=== PATIENT | female | born 1980 | race Caucasian/White ===

== ENCOUNTER 2025-01-31 18:14 | Emergency (ER) | payer BC, SELFPAY ==
--- OUTSIDE RECORDS SUMMARY | 2024-01-11 08:34 | XMS_ITS ---
Author Organization [facility] [employer] Address [address] [address] [place] [address] Care Team Providers Care Door Closer Name Role Phone Allison Laird Primary Care Provider [phone] MEDICATIONS Medication SIG (Take, Route, Frequency, Duration) Notes Start Date End Date Status Losartan Potassium 50 MG 1 tablet Orally Once a day for 90 days 01/11/2024 Active Encounters Encounter Location Date Provider Diagnosis [facility] [employer] [address] [facility] [place] [address] 01/11/2024 Allison Laird Benign essential hypertension I10 ASSESSMENTS Encounter Date Diagnosis Assessment Notes Treatment Notes Treatment Clinical Notes Section Notes 01/11/2024 Benign essential hypertension (ICD-10 - I10) PLAN OF TREATMENT Medication Medication Name Sig Start Date Stop Date Notes Losartan Potassium 50 MG 1 tablet Orally Once a day for 90 days 01/11/2024 Next Appt Details Provider Name:Allison rodriguez, 05/31/2025 03:00:00 PM, [address],[facility] [address], [place], [address], Progress Notes * JOHNATHAN AngiemorenitaDOB:1980 (43 yo F)Acc No.[id number]:01/11/2024 Patient: Jacqui MANN :1980 Age:43 Y Sex:Female Address:[address] , [address], [place], [address] * Refills Refill Losartan Potassium Tablet, 50 MG, Orally, 90 Tablet, 1 tablet, Once a day, 90 days, Refills=1 * true * Date:
--- OUTSIDE RECORDS SUMMARY | 2024-01-12 05:15 | XMS_ITS ---
Author Organization [facility] [place] Address [address] [place] [address] Care Team Providers Care Ropewalk Rope Maker Name Role Phone Eitan DANIELS, [facility] Primary Care Provider Unavail able Lola Rea Unavailable [phone] REASON FOR VISIT JR 6mo FBSE Encounters Encounter Location Date Provider Diagnosis [facility] [address] [place] [address] 01/12/2024 Lola Rea Other rosacea L71.8 ; Other seborrheic keratosis L82.1 ; Other melanin hyperpigmentation L81.4 ; Melanocytic nevi of trunk D22.5 and Neoplasm of uncertain behavior of skin D48.5 Assessments Encounter Date Diagnosis (ICD Code) Assessment Notes Treatment Notes Treatment Clinical Notes Section Notes 01/12/2024 Other rosacea (ICD-1 0 - L71.8) 01/12/2024 Other seborrheic keratosis (ICD-10 - L82.1) 01/12/2024 Other melanin hyperpigmentation (ICD-10 - L81.4) 01/12/2024 Melanocytic nevi of trunk (ICD-10 - D22.5) 01/12/2024 Neoplasm of uncertai n behavior of skin (ICD-10 - D48.5) Plan Of Treatment No Information Progress Notes * Jacqiu MANNDOB:1980 (44 yo F)Acc No.[id number]:01/12/2024 UNLOCKED PROGRESS NOTE Established Patient: Jacqui OLGUIN Provider: Rachna Rea NP :1980 A ge:43 Y S ex:Female Date:01/12/2024 Address:[facility] [address] [facility] Pcp:Allison Laird MD Check In:08:48 AM ESTCheck O ut:09:22 AM EST Subjective: * Chief Complaints: * 1 . JR 6mo FBSE. * Medical History: Objective: * Vitals: Assessment: * Assessment: 1. O ther rosacea - L71.8 2 . O ther seborrheic keratosis - L82.1 ? 3 . O ther melanin hyperpigmentation - L81.4 4 . M elanocytic nevi of trunk - D22.5 5 . N eoplasm of uncertain behavior of skin - D48.5 ? Plan: * Treatment: * Procedure Codes: 1 1102 TANGENTIAL BIOPSY OF SKIN * * Electronic signature of Lola Rea DNP, ZIPPER IRONER.ELECTRICAL MAINTENANCE [id number] on 01/31/2025 at 06:25 PM EDT Sign off status: Pending Visit Status: Abby GOEL (Check Out) * Provider: Rachna Rea NP Date: 0 01/12/2024 Generated for Elle donaldson/Hector/Debbieitting on: 01/31/2025 06:25 PM EDT
--- OUTSIDE RECORDS SUMMARY | 2024-03-22 04:30 | XMS_ITS ---
Author Organization [facility] in [place] Address [address] [place] [address] Care Team Providers Care Shingle Grader Name Role Phone Eitan DANIELS, Allison Primary Care Provider Unavail Lola Smith Unavailable [phone] REASON FOR VISIT bm 2mo rosacea Encounters Encounter Location Date Provider Diagnosis [facility] [address] [place] [address] 03/22/2024 Lola Rea Plan Of Treatment No Information Progress Notes * Jacqui MANNDOB:1980 (44 yo F)Acc No.[id number]:03/22/2024 UNLOCKED PROGRESS NOTE Established Patient: Jacqui OLGUIN Provider: Rachna Rea NP :1980 A ge:44 Y S ex:Female Date:03/22/2024 Address:[facility] [place] [address] [facility] Pcp:Allison Laird MD Subjective: * Chief Complaints: * 1 . Bm 2mo rosacea. * Medical History: Objective: * Vitals: Assessment: Plan: * Treatment: * * Electronic signature of Lola Rea DNP, COOK NIGHT.VENDING ENTERPRISES SUPERVISOR.[email or web address] on 01/31/2025 at 06:24 PM EDT Sign off status: Pending Visit Status: N /S (No-Show) * Provider: Rachna Rea NP Date: 0 03/22/2024 Generated for Elle donaldson/Hector/eTransmitting on: 01/31/2025 06:24 PM EDT
--- OUTSIDE RECORDS SUMMARY | 2024-07-13 07:30 | XMS_ITS ---
Author Organization [facility] [employer] Address [address] [facility] [address] [place] [address] Care Team Providers Care Undercollar Baster Name Role Phone Allison Laird Primary Care Provider REASON FOR VISIT 6 month f/u MEDICATIONS Medication SIG (Take, Route, Frequency, Duration) Notes Start Date End Date Status Multivitamin Adults 1 1 tablet Orally On ce a day Active Zinc 50 MG 1 tablet Orally Once a day Active Losartan Potassium 50 MG 1 tablet Orally Once a day for 90 days 01/11/2024 Active Loratadine 10 MG 1 tablet as needed. Orally Once a day for 30 day(s) 04/04/2020 Active Propranolol HCl ER 60 MG 1 capsule Orall y Once a day for 90 days Active Rizatriptan Benzoate 10 MG 1 tablet as n eeded Orally Once a day 10/13/2022 Active Levothyroxine Sodium 175 MCG 1 tablet in the morning on an empty stomach Orally Once a day Active Vitamin A 79477 UNIT 1 capsule with food or milk Orally Once a day Active Thiamine HCl 100 mg 1 tablet Orally Once a day Active SOCIAL HISTORY Tobacco Use: Social History Observation Description Date Details (start date - stop date) Never Smoker NA - NA Sex Assigned At : Social History Observation Description Sex Assigned At Unknown Tobacco Use/Smoking Question Answer Notes Are you a nonsmoker Additional Findings: Tobacco Non-User Non-smoker for personal reasons Tobacco use other than smoking: Question Answer Notes Are you an other tobacco user? No Encounters Encounter Location Date Provider Diagnosis [facility] [employer] [address] [facility] [address] [place] [address] 07/13/2024 Allison Laird ASSESSMENTS Encounter Date Diagnosis Assessment Notes Treatment Notes Treatment Clinical Notes Section Notes 07/13/2024 Other PLAN OF TREATMENT Next Appt Details Provider Name:Geraldinedarryn Simon jennifer, 05/31/2025 03:00:00 PM, [address] [facility] [address], [place], [address], Progress Notes * Jacqui MANNDOB:1980 (44 yo F)Acc No.[id number]:07/13/2024 Progress Notes Patient: Jacqui MANN Provider: Allison Laird MD :1980 Age:44 Y Sex:Female Date:07/13/2024 Address:[address] [place] [address] [address], [facility] Subjective: * Chief Complaints: * 1. 6 month f/u. * Medical History: AAFP Risk Level 3, Hypothyroidism, Obstructive Sleep Apnea, Reflux Esophagitis, Morbid Obesity, Hypertension, Refused Flu vaccine . * Surgical History: cholecystectomy , hysterectomy , fractured collar bone , EGD 04/2015, Colonoscopy 06/2015, Laproscopic Bariatric Surgery 10/07/2015, oral surgery all teeth tooken out 01/05/17. * Hospitalization/Major Diagno stic Procedure: Laproscopic Bariatric Surgery 09/2015. * Family History: Father: hypertension, diagnosed with Hypertension. Mother: stroke, hypertension, migraine, obesity, thyroid disease, depression, hypercholesterolemia, DVT., diagnosed with Hypertension, Unspecified cerebral artery occlusion with cerebral infarction. * Social History: Tobacco Use: Tobacco Use/Smoking Are you a nonsmoker Additional Findings: Tobacco Non-User Non-smoker for personal reasons Tobacco use other than smoking Are you an other tobacco user? No Drugs/Alcohol: Drugs Have you used drugs other than those for medical reasons in the past 12 months? No. Alcohol Screen Did you have a drink containing alcohol in the past year?: No, Points: 0, Interpretation: Negative. * Medications: Taking Levothyroxine Sodium 175 MCG Tablet 1 tablet in the morning on an empty stomach Orally Once a day , Taking Rizatriptan Benzoate 10 MG Tablet Disintegrating 1 tablet as needed Orally Once a day , Taking Thiamine HCl 100 mg Tablet 1 tablet Orally Once a day , Taking Vitamin A 73790 UNIT Capsule 1 capsule with food or milk Orally Once a day , Taking Zinc 50 MG Tablet 1 tablet Orally Once a day , Taking Multivitamin Adults 1 Tablet 1 tablet Orally Once a day , Taking Loratadine 10 MG Tablet 1 tablet as needed. Orally Once a day , Taking Losartan Potassium 50 MG Tablet 1 tablet Orally Once a day , Taking Propranolol HCl ER 60 MG Capsule Extended Release 24 Hour 1 capsule Orally Once a day Objective: Assessment: Plan: * Treatment: * Images: Care Plan Details* * Sign off status: Pending * Provider: Allison Laird MD Date: 07/13/2024
--- OUTSIDE RECORDS SUMMARY | 2024-07-26 05:15 | XMS_ITS ---
Author Organization [facility] in [place] Address [address] [place] [address] Care Team Providers Care Laceworker Name Role Phone Eitan DNAIELS, Allison Primary Care Provider Unavail Lola Smith Unavailable [phone] REASON FOR VISIT bm 6mo fbse hx of DN Encounters Encounter Location Date Provider Diagnosis [facility] [address] [place] [address] 07/26/2024 Lola Rea Plan Of Treatment No Information Progress Notes * Jacqui MANNDOB:1980 (44 yo F)Acc No.[id number]:07/26/2024 UNLOCKED PROGRESS NOTE Established Patient: Jacqui OLGUIN Provider: Rachna Rea NP :1980 A ge:44 Y S ex:Female Date:07/26/2024 Address:[facility] [address] [facility] Pcp:Allison Laird MD Subjective: * Chief Complaints: * 1 . bm 6mo fbse hx of DN. * Medical History: Objective: * Vitals: Assessment: Plan: * Treatment: * * Electronic signature of Lola Rea DNP, MATHEMATICS TEACHER.MATH AND PHYSICS INSTRUCTOR.[email or web address] on 01/31/2025 at 06:24 PM EDT Sign off status: Pending Visit Status: N /S (No-Show) * Provider: Rachna Rea NP Date: 1 09/25/2023 Generated for Elle donaldson/Hector/eTransmitting on: 0 01/31/2025 06:24 PM EDT
--- OUTSIDE RECORDS SUMMARY | 2024-11-21 09:30 | XMS_ITS ---
Author Organization [facility] [employer] Address [address] [facility] [place] [address] Care Team Providers Care Batteryman Name Role Phone Allison Laird Primary Care Provider [phone] ALLERGIES No Known Allergies RESULTS Component Value Reference Range Notes Ferritin Reviewed date:11/21/2024 04:34:37 PM Interpretation:Normal Performing Lab: Notes/Report: Ferritin Lvl 12.3 5.0-148.0 ng/mL TSH Reviewed date:11/22/2024 10:19:16 AM Interpretation:Abnormal Performing Lab: Notes/Report: TSH 3.92 0.36-3.74 mIU/mL REASON FOR VISIT foll up MEDICATIONS Medication SIG (Take, Route, Frequency, Duration) Notes Start Date End Date Status Vitamin A 06814 UNIT 1 capsule with food or milk Orally Once a day Active Ferrous Sulfate 325 (65 Fe) MG 1 tablet Orally Twice a day for 90 days 11/21/2024 Active Zinc 50 MG 1 tablet Orally Once a day Active Multivitamin Adults 1 1 tablet Orally On ce a day Active Thiamine HCl 100 mg 1 tablet Orally Once a day for 90 days Active Levothyroxine Sodium 200 MCG 1 tablet in the morning on an empty stomach Orally Once a day for 90 days Active Rizatriptan Benzoate 10 MG 1 tablet as n eeded Orally Once a day for 90 days 10/13/2022 Active Loratadine 10 MG 1 tablet as needed. Orally Once a day for 30 day(s) 04/04/2020 Not-Taking Losartan Potassium 50 MG 1 tablet Orally Once a day 01/11/2024 Active Propranolol HCl ER 60 MG 1 capsule Orall y Once a day Active SOCIAL HISTORY Tobacco [...] Are you an other tobacco user? No VITAL SIGNS Blood pressure systolic 130 mm Hg 11/22/19 25 Blood pressure diastolic 89 mm Hg 025 Heart Rate 61 /min 11/21/2024 Height 5ft4in in 11/21/2024 Weight 285 lbs 11/21/2024 BMI 48.91 kg/m2 11/21/2024 Encounters Encounter Location Date Provider Diagnosis [facility] [address] [address] 11/21/2024 Allison Laird Benign essential hypertension I10 ; Hypothyroidism E03.9 ; Chronic migraine G43.709 ; Microcytosis R71.8 ; Morbid obesity E66.01 and Bariatric surgery status Z98.84 ASSESSMENTS Encounter Date Diagnosis Assessment Notes Treatment Notes Treatment Clinical Notes Section Notes 11/21/2024 Benign essential hypertension (ICD-10 - I10) Well controlled on current therapy, continue present regimen. 11/21/2024 Hypothyroidism (ICD-10 - E03.9) Increase dose for better control. 11/21/2024 Chronic migraine (ICD-10 - G43.709) No more episode. 11/21/2024 Microcytosis (ICD-10 - R71.8) Await labs to ruleout iron deficiency. 11/21/2024 Morbid obesity (ICD-10 - E66.01) weight loss encouraged. 11/21/2024 Bariatric surgery status (ICD-10 - Z98.84) Weight remains stable. PLAN OF TREATMENT Medication Medication Name Sig Start Date Stop Date Notes Vitamin A 05579 UNIT 1 capsule with food or milk Orally Once a day Ferrous Sulfate 325 (65 Fe) MG 1 tablet Orally Twice a day for 90 days 11/21/2024 Zinc 50 MG 1 tablet Orally Once a day Multivitamin Adults 1 1 tablet Orally Once a day Thiamine HCl 100 mg 1 tablet Orally Once a day for 90 days Levothyroxine Sodium 200 MCG 1 tablet in the morning on an empty stomach Orally Once a day for 90 days Rizatriptan Benzoate 10 MG 1 tablet as n eeded Orally Once a day for 90 days 10/13/2022 Losartan Potassium 50 MG 1 tablet Orally Once a day 2023 Propranolol HCl ER 60 MG 1 capsule Orally Once a day Treatment Notes Assessment Notes Benign essential hypertension Well contr olled on current therapy, continue present regimen. Hypothyroidism Increase dose for be tter control. Chronic migraine No more episode. Microcytosis Await labs to ruleou t iron deficiency. Morbid obesity weight loss encour ed. Bariatric surgery status Weight remains stable. Pending Test Test Name Order Date Reticulocyte Count 11/21/2024 Iron & TIBC 11/21/2024 Next Appt Details Follow Up: 6 Months, Reason: Provider Name:Allison rodriguez, 05/31/2025 03:00:00 PM, [address] [facility] [address], [place], [address], Progress Notes * Jacqui MANNDOB:1980 (44 yo F)Acc No.[id number]:11/21/2024 Progress Notes Patient: Jacqui MANN Provider: Allison Laird MD :1980 Age:44 Y Sex:Female Date:11/21/2024 Address:[address] [place] [address] [address] [facility] , [address], [place] [id number] Subjective: * Chief Complaints: * 1. Foll up. * HPI: Hypertension: Patient presents for follow-up of hypertension which is long-standing, which was diagnosed years ago, considered benign. Medication(s) for hypertension include n ot taking lisinopril after bariatric surgery and weight loss., Propranolol. Response to medication(s) has been good, has been variable, mostly at goal. Hypothyroidism: The patient presents for follow-up of hypothyroidism which was diagnosed years ago, considered moderate at diagnosis, considered secondary to autoimmune thyroiditis . Laboratory testing has included TSH, 0-2.0 mcg/dL. Medication(s) include Levothyroxine, at moderate dose. Response to medication has been good. Depression Screening: PHQ-2 In last 2 weeks have you been bothered by Little interest or pleasure in doing things No Feeling down, depressed, or hopeless No * ROS: Constitutional: Change in appetite denies. Sleep disturbance denies. Weight Change denies. Allergy/Immunology: Watery eyes denies. Eyes: Jaundice denies. Vision Change denies. Diminished visual acuity denies. Discharge denies. Dry eye denies. Itching and redness denies. New Pain denies. Red eye denies. ENT/Mouth: Blocked ear denies. Decreased hearing denies. Ear pain denies. Ringing in the ears denies. Sore throat denies. Respiratory: Breathing pattern denies. Cough denies. Hemoptysis denies. Pain with inspiration denies. Shortness of breath denies. Sputum production denies. Wheezing denies. Cardiovascular: Chest pain denies. Claudication denies. Difficulty laying flat denies. Dizziness denies. Dyspnea on exertion denies. Irregular heartbeat denies. Palpitations denies. Weakness denies. Gastrointestinal: Abdominal pain denies. Blood in stool denies. Change in bowel habits denies. Constipation denies. Diarrhea denies. Heartburn denies. Nausea denies. Rectal bleeding denies. Vomiting denies. Weight loss denies. Genitourinary: Blood in urine denies. Difficulty urinating denies. Frequent urination denies. Painful urination denies. Musculoskeletal: Joint stiffness denies. Leg cramps denies. Muscle aches denies. Painful joints denies. Sciatica denies. Peripheral Vascular: Blanching of skin denies. Cold extremities denies. Pain/cramping in legs after exertion denies. Ulceration of feet denies. Neurological: Memory loss denies. Tremor denies. Psychiatric: Anxiety denies. Mood changes denies. Difficulty sleeping denies. * Medical History: AAFP Risk Level 3, [...] No, Points: 0, Interpretation: Negative. * Medications: Not-Taking Levothyroxine Sodium 175 MCG Tablet 1 tablet in the morning on an empty stomach Orally Once a day , Not-Taking Rizatriptan Benzoate 10 MG Tablet Disintegrating 1 tablet as needed Orally Once a day , Not-Taking Thiamine HCl 100 mg Tablet 1 tablet Orally Once a day , Not-Taking Vitamin A 50902 UNIT Capsule 1 capsule with food or milk Orally Once a day , Not-Taking Zinc 50 MG Tablet 1 tablet Orally Once a day , Not-Taking Multivitamin Adults 1 Tablet 1 tablet Orally Once a day , Not-Taking Loratadine 10 MG Tablet 1 tablet as needed. Orally Once a day , Not- Taking Losartan Potassium 50 MG Tablet 1 tablet Orally Once a day , Not-Taking Propranolol HCl ER 60 MG Capsule Extended Release 24 Hour 1 capsule Orally Once a day , Medication List reviewed and reconciled with the patient * Allergies: N.K.D.A. Objective: * Vitals: BP:130/89mm Hg, HR:61/min, Ht: 5ft4in, Wt:285lbs, BMI:48.91Index, Ht-cm: 162.56 cm, Wt-k.27 kg. * Examination: General Examination: GENERAL APPEARANCE: in no acute distress, , obese. HEAD: atraumatic. EYES: pupils equal, round, reactive to light . EARS: external canal is normal, tympanic membrane intact . NOSE: no lesions, septum intact. ORAL CAVITY: mucosa moist. THROAT: clear. NECK/THYROID: neck supple , no carotid bruit, no cervical lymphadenopathy, no jugular venous distention, no thyromegaly. SKIN: warm and dry.She has a pigmented skin leision on her mid back.. HEART: regular rate and rhythm, S1, S2 normal, no murmurs, no rubs. LUNGS: good air entry, no wheezes, rales, rhonchi, clear to auscultation bilaterally, normal to palpation no fremitus. CHEST: symetrical. ABDOMEN: soft, nontender, nondistended, normal, bowel sounds present, no hepatosplenomegaly, no hernias present, no masses palpable, no rebound tenderness, no bruits. EXTREMITIES: no deformity, warm to touch, no clubbing, cyanosis, or edema. Assessment: * Assessment: 1. Benign essential hypertension - I10 2. Hypothyroidism - E03.9 3. Chronic migraine - G43.709 4. Microcytosis - R71.8 5. Morbid obesity - E66.01 6. Bariatric surgery status - Z98.84 Plan: * Treatment: 2. Hypothyroidism Increase Levothyroxine Sodium Tablet, 200 MCG, 1 tablet in the morning on an empty stomach, Orally, Once a day, 90 days, 90 Tablet, Refills 1. LAB: TSH (Collection Date & Time - 11/21/2024 02:16 PM) Abnormal Value Reference Range TSH 3.92 H 0.36-3.74 - mIU/mL * Thyroid is under corrected.N eed to increase dose to 200 mmcg daily,Rx sent.Allison Laird 11/21/2024 04:34:01 PM >informed the Anyi Leon 11/22/2024 10:19:13 AM > Notes: Increase dose for better control.?3.??Chronic migraine?? Continue Rizatriptan Benzoate Tablet Disintegrating, 10 MG, 1 tablet as needed, Orally, Once a day,90 days, 45 Tablet, Refills 1;??Continue Propranolol HCl ER Capsule Extended Release 24 Hour, 60 MG, 1 capsule, Orally, Once a day.? Notes: No more episode.?4.??Microcytosis?? Start Ferrous Sulfate Tablet, 325 (65 Fe) MG, 1 tablet, Orally, Twice a day, 90 days, 180, Refills 1.?LAB: Reticulocyte Count ?LAB: Iron & TIBC ?LAB: Ferritin (Collection Date & Time - 11/21/2024 02:16 PM)??Normal* Value Reference Range Ferritin Lvl 12.3 5.0-148.0 - ng/mL * Allison Laird 11/21/2024 04:33:56 PM > Notes: Await labs to ruleout iron deficiency.?5.??Morbid obesity?? Notes: weight loss encouraged.?6.??Bariatric surgery status?? Continue Thiamine HCl Tablet, 100 mg, 1 tablet, Orally, Once a day, 90 days, 90 Tablet, Refills 1;??Continue Vitamin A Capsule, 04908 UNIT, 1 capsule with food or milk, Orally, Once a day;??Continue Zinc Tablet, 50 MG, 1 tablet, Orally, Once a day;??Continue Multivitamin Adults Tablet, 1, 1 tablet,Orally, Once a day.? Notes: Weight remains stable.? * Follow Up: 6 Months * Images: Care Plan Details* * Sign off status: Pending * Provider: Allison Laird MD Date: 11/21/2024 History and Physical Notes * HPI (History of Present Illness) Category Sub-Category Detail Notes Category Not es Hypertension Patient presents for follow-up of hypertension which is long-standing, which was diagnosed years ago, considered benign Medication(s) for hypertension include n ot taking lisinopril after bariatric surgery and weight loss., Propranolol Response to medication(s) has been good, has been variable, mostly at goal Hypothyroidism The patient presents for follow-up of hypothyroidism which was diagnosed years ago, considered moderate at diagnosis, considered secondary to autoimmune thyroiditis Laboratory testing has included TSH, 0-2 .0 mcg/dL Medication(s) include Levothyroxine, at moderate dose Response to medication has been good Depression Screening PHQ-2 In last 2 wee ks have you been bothered by Little interest or pleasure in doing things: No Feeling down, depressed, or hopeless: No Examination Category Sub-Category Detail Notes Category Not es General Examination GENERAL APPEARANCE: in no acute di stress, , obese HEAD: atraumatic EYES: pupils equal, round, reactive to light EARS: external canal is no rmal, tympanic membrane intact NOSE: no lesions, septum i ntact THROAT: clear NECK/THYROID: neck supple , no car otid bruit, no cervical lymphadenopathy, no jugular venous distention, no thyromegaly HEART: regular rate and rhy thm, S1, S2 normal, no murmurs, no rubs CHEST: symetrical LUNGS: good air entry, no w heezes, rales, rhonchi, clear to auscultation bilaterally, normal to palpation no fremitus ABDOMEN: soft, nontender, non distended, normal, bowel sounds present, no hepatosplenomegaly, no hernias present, no masses palpable, no rebound tenderness, no bruits SKIN: warm and dry.She has a pigmented skin leision on her mid back. EXTREMITIES: no deformity, warm t o touch, no clubbing, cyanosis, or edema ORAL CAVITY: mucosa moist
[2025-01-31] VITALS (22 sets, daily range): BP systolic 131–168; BP diastolic 69–82; PULSE 62–83; TEMP 36.7; O2SAT 96–100; BMI 47.2
--- OUTSIDE RECORDS SUMMARY | 2025-01-31 18:24 | XMS_ITS | Patient Health Record ---
Demographics Address [address] [place] [address] Preferred Language en Marital Status unmarried Quaker Affiliation Unknown Race White Ethnic Group Not or Lati no Author Organization [facility] in [place] Address [address] [place] [address] Care Team Providers Care Drapery And Upholstery Estimator Name Role Phone Eitan DANIELS, [facility] Primary Care Provider Unavail able Lola Rea Unavailable [phone] Reason For Referral No Information Encounters Encounter Location Date Provider Diagnosis [facility] [address] [place] [address] 03/22/2024 Lola Rea [facility] [address] [place] [address] 07/26/2024 Lola Rea Plan Of Treatment No Information
--- NOTE | 2025-01-31 18:46 | ECG_ITS ---
[facility] Test Date: 2025-01-31 Pat Name: CIARRA HODGE Department: Room: - Gender: Female Exhibition Designer: : 1980 Requested By: [id number] Order Number: [id number] Reading MD: MICHELLE AVILA M.D. Measurements Intervals [place] Rate: 69 P: 32 MI: 160 QRS: 45 QRSD: 76 T: 47 QT: 368 QTc: 387 Interpretive Statements 1100 Sinus rhythm 8102 Low QRS voltage in chest leads Abnormal ECG No previous ECG available for comparison Electronically Signed On 02-02-2025 8:49:37 EDT by MICHELLE AVILA M.D.
--- NOTE | 2025-01-31 18:46 | XR_ITS ---
The [address] [address] Patient Name: CIARRA HODGE MRN: [id number] date: 1980 Sex: F Assigned Patient Location: ER Current Patient Location: ED.MAIN Accession/Order Number: [id number] Exam Date: 01/31/2025 19:20 Report Date: 01/31/2025 19:22 At the request of: NANETTE ANGELA Procedure: XR ribs RT min 3V w CXR1V Right Rib series with Single View Chest HISTORY: Right rib pain. COMPARISON: None MEDIASTINUM: Cardiac, mediastinal hilar silhouettes are within normal limits. LUNGS AND PLEURA: No acute lung process, pleural effusion or pneumothorax identified. ACUTE FINDINGS: No displaced rib fracture identified. DEGENERATIVE CHANGE: Unremarkable SOFT TISSUE: Unremarkable POSTOP CHANGES: None XR/XR ribs RT min 3V w CXR1V IMPRESSION: No displaced rib fracture. No acute chest findings. Impression dictated by: Deven Morris M.D. 01/31/2025 7:22 PM Dictation Location: [employer] Electronically authenticated by: [id number] Y Date: 01/31/2025 19:22
--- NOTE | 2025-01-31 18:46 | ED.GENADUL1 ---
HPI HPI - General Adult General Chief complaint: Chest Pain Stated complaint: ABDOMINAL PAIN Time Seen by Provider: 01/31/25 18:42 Source: patient Limitations: no limitations History of Present Illness HPI narrative: 44 year old female presents to the ED for chest discomfort. States it starts in the mid chest and goes down to under her right breast. It wraps around to her back. Onset was this morning. It is worse with movement, inspiration, and palpation. States last week someone gave her a tight hug and she felt something move within her right chest. The pain then only lasted a few minutes. Denies fever, chills, dizziness, SOB. Denies abd pain, N/V/D, urinary symptoms. Related Data Home Medications ?Medication ?Instructions ?Recorded ?Confirmed calcium 600 mg (as 1 tab PO DAILY 01/31/25 01/31/25 carbonate)-vitamin D3 5 mcg (200 unit) tablet (Calcium 600 + D(3)) ferrous sulfate 325 mg (65 mg 325 mg PO .q12 01/31/25 01/31/25 iron) tablet (FeroSul) levothyroxine 175 mcg tablet 200 mcg PO QDAY 01/31/25 01/31/25 losartan 50 mg tablet 50 mg PO QDAY 01/31/25 01/31/25 propranolol 60 mg capsule,24 60 mg PO Q24H 01/31/25 01/31/25 hr,extended release rizatriptan 10 mg disintegrating 10 mg PO Q2H PRN migraine headache 01/31/25 01/31/25 tablet thiamine HCl (vitamin B1) 100 mg 100 mg PO QDAY 01/31/25 01/31/25 tablet Previous Rx's ?Medication ?Instructions ?Recorded hydrocodone 5 mg-acetaminophen 325 1 tab PO Q8H PRN pain 4 days #12 01/31/25 mg tablet tabs methocarbamol 500 mg tablet 500 mg PO Q8H PRN pain, muscle 01/31/25 spasms #15 tabs Allergies Allergy/AdvReac Type Severity Reaction Status Date / Time latex Allergy Rash Verified 01/31/25 18:24 Opioid HPI Opioid Management Most Recent Opioid Data: Last Pain Scale 4 Today, 21:16 Last NOV Pain Assessment Today, 21:16 Review of Systems ROS Constitutional Denies: fever or chills Ears, nose, mouth, and throat Denies: throat pain or neck pain Cardiovascular Reports: chest pain Respiratory Denies: shortness of breath or cough Gastrointestinal Denies: abdominal pain, nausea, vomiting or diarrhea Musculoskeletal Reports: back pain; Denies: neck pain Integumentary/Breast Denies: rash or itching [facility] Medical History (Updated 01/31/25 @ 21:10 by Meri Bagley) Hypothyroid ?E03.9 - Hypothyroidism, unspecified (ICD-10) HTN (hypertension) ?I10 - Essential (primary) hypertension (ICD-10) Migraine ?G43.909 - Migraine, unspecified, not intractable, without status migrainosus (ICD-10) Surgical History (Updated 01/31/25 @ 18:32 by Liliana Nickerson) Gastric bypass status for obesity ?Z98.84 - Bariatric surgery status (ICD-10) Social History Little interest or pleasure in doing things: not at all Feeling down, depressed, or hopeless: not at all Exam Constitutional Vital Signs, click to edit/add: Last Vital Signs Temp 98.1 F 01/31/25 18:24 Pulse 66 01/31/25 21:10 Resp 14 01/31/25 21:10 BP 131/77 01/31/25 20:31 Pulse Ox 100 01/31/25 21:10 O2 Del Method Room Air 01/31/25 18:24 Common normals: no apparent distress General appearance: cooperative HENMT Common normals: moist oral mucous membranes Eye Common normals: conjunctivae normal and no scleral icterus Neck & C-Spine Common normals: supple Chest Chest: symmetrical chest wall rise Other: Tenderness to right lower rib area and right upper mid chest with palpation. No rash. Respiratory Common normals: normal respiratory effort, no retractions, no use of accessory muscles, clear to auscultation bilaterally and percussion normal Effort & inspection: able to speak in complete sentences and symmetric chest movement Cardio Common normals: regular rate and regular rhythm GI Common normals: soft to palpation and non-tender Neuro Common normals: oriented x3 and moves all extremities Sensorium/orientation: awake and alert Speech: speech normal Course Vital Signs Vital signs: Vital Signs Temperature 98.1 F 01/31/25 18:24 Pulse Rate 69 01/31/25 18:24 Respiratory Rate 16 01/31/25 18:24 Blood Pressure 168/81 H 01/31/25 18:24 Pulse Oximetry 99 05/22/25 18:24 Oxygen Delivery Method Room Air 01/31/25 18:24 Temperature 98.1 F 01/31/25 18:24 Pulse Rate 66 01/31/25 21:10 Respiratory Rate 14 01/31/25 21:10 Blood Pressure 131/77 01/31/25 20:31 Pulse Oximetry 100 01/31/25 21:10 Oxygen Delivery Method Room Air 01/31/25 18:24 Medical Decision Making MDM Narrative Medical decision making narrative: Laboratory studies were unremarkable, including troponin. Chest/rib x-rays were negative for acute findings. Abdomen was soft and nontender. The patient's pain was reproducible. Findings were discussed. She was medicated with Toradol and Decadron here. The patient was driving home which limited her pain treatment options here. Return precautions were discussed. Follow up with pcp for a recheck, further evaluation and treatment. OARRS was reviewed. Prescriptions were provided for Robaxin and [place]. HEART Score for Major Cardiac Events from [email or web address] on 01/31/2025 All calculations should be rechecked by clinician prior to use RESULT SUMMARY: 1 points Low Score (0-3 points) Risk of MACE of 0.9-1.7%. INPUTS: History ?> 0 = Slightly suspicious EKG ?> 0 = Normal Age ?> 0 = <45 Risk factors ?> 1 = 1-2 risk factors Initial troponin ?> 0 = <=normal limit Medical Records Medical records reviewed: Yes I reviewed the patient's medical records Lab Data Lab results reviewed: Yes I reviewed the patient's lab results Labs: Lab Results 01/31/25 Range/Units 19:00 WBC 10.5 (4.0-11.0) 10^3/uL RBC 5.01 (4.20-5.40) 10^6/uL Hgb 13.1 (12.0-16.0) g/dL Hct 40.1 (36.0-48.0) % MCV 80.0 L (81.0-99.0) fL MCH 26.1 L (26.7-34.0) pg MCHC 32.7 (29.9-35.2) g/dL RDW 14.1 (11.0-15.0) % Plt Count 242 (150-450) 10^3/uL MPV 10.3 (9.5-13.5) fL Neut % (Auto) 64.1 (43.0-75.0) % Lymph % (Auto) 26.4 (20.5-60.0) % [place] % (Auto) 7.7 (1.7-12.0) % Eos % (Auto) 1.1 (0.9-7.0) % Baso % (Auto) 0.5 (0.2-2.0) % Neut # (Auto) 6.7 H (1.4-6.5) 10^3/uL Lymph # (Auto) 2.8 (1.2-3.8) 10^3/uL [place] # (Auto) 0.8 (0.3-0.8) 10^3/uL Eos # (Auto) 0.1 (0.0-0.7) 10^3/uL Baso # (Auto) 0.1 (0.0-0.1) 10^3/uL Abs Immat Gran (auto) 0.02 (0.00-0.03) 10^3/uL Imm/Tot Granulo (auto) 0.2 (0.0-0.5) % Sodium 142 (136-145) mmol/L Potassium 3.9 (3.5-5.1) mmol/L Chloride 106 (98-107) mmol/L Carbon Dioxide 28.6 (21.0-32.0) mmol/L Anion Gap 11.3 BUN 12.0 (7.0-18.0) mg/dL Creatinine 0.80 (0.55-1.02) mg/dL Est GFR ( Amer) >60 (>=60 mL/min/1.73m^2) Est GFR (Non-Af Amer) >60 (>=60 mL/min/1.73m^2) BUN/Creatinine Ratio 15.0 Glucose 80 (74-106) mg/dL Calcium 8.5 (8.5-10.1) mg/dL Total Bilirubin 0.3 (0.2-1.0) mg/dL AST 16 (15-37) U/L ALT 24 (14-59) U/L Alkaline Phosphatase 134 H (46-116) U/L Troponin I High Sens 5.6 (4.0-51.3) pg/mL Total Protein 6.7 (6.4-8.2) g/dL Albumin 3.0 L (3.4-5.0) g/dL Globulin 3.7 g/dL Albumin/Globulin Ratio 0.8 Lipase 41.0 (16.0-77.0) U/L Imaging Data Chest x-ray: Attestation: I have reviewed the pertinent imaging results. Radiologist's impression: ITS Impressions Ribs X-Ray 01/31/25 18:46 IMPRESSION: No displaced rib fracture. No acute chest findings. Impression dictated by: Deven Morris M.D. 01/31/2025 7:22 PM Dictation Location: [employer] Electronically authenticated by: [id number] Y Date: 01/31/2025 19:22 ECG Data Attestation: ?I have reviewed the pertinent ECG results. (EKG was reviewed by the attending physician. It showed sinus rhythm at a rate of 69. No STEMI. ) Interpretation: Measurements Intervals [place] Rate: 69 P: 32 [place]: 160 QRS: 45 QRSD: 76 T: 47 QT: 368 QTc: 387 Interpretive Statements 1100 Sinus rhythm 8102 Low QRS voltage in chest leads 9120 atypical ECG No previous ECG available for comparison Discharge Plan Discharge Chief Complaint: Chest Pain Clinical Impression: Chest wall pain Patient Disposition: Home, Self-Care Time of Disposition Decision: 21:10 Condition: Good Mode of Transportation: Private Vehicle Prescriptions / Home Meds: New methocarbamol 500 mg tablet 500 mg PO Q8H PRN (Reason: pain, muscle spasms) Qty: 15 0RF hydrocodone-acetaminophen 5-325 mg tablet 1 tab PO Q8H PRN (Reason: pain) 4 Days Qty: 12 0RF No Action ferrous sulfate [FeroSul] 325 mg (65 mg iron) tablet 325 mg PO .q12 levothyroxine 175 mcg tablet 200 mcg PO QDAY losartan 50 mg tablet 50 mg PO QDAY propranolol 60 mg capsule,extended release 24 hr 60 mg PO Q24H rizatriptan 10 mg tablet,disintegrating 10 mg PO Q2H PRN (Reason: migraine headache) thiamine HCl (vitamin B1) 100 mg tablet 100 mg PO QDAY calcium carbonate-vitamin D3 [Calcium 600 + D(3)] 600 mg-5 mcg (200 unit) tablet 1 tab PO DAILY Print Language: Vietnamese Instructions: Chest Pain (ED), Chest Wall Pain (ED) Additional Instructions: Return to the ER for worsening symptoms. Referrals: Physician,Non-Staff, MD [Primary Care Provider] - 1 week
[2025-01-31 19:21] LABS: Basophils Absolute Auto 0.1 10^3/uL (0.0-0.1); Basophils Percent Auto 0.5 % (0.2-2.0); Eosinophils Absolute Auto 0.1 10^3/uL (0.0-0.7); Eosinophils Percent Auto 1.1 % (0.9-7.0); Hematocrit 40.1 % (36.0-48.0); Hemoglobin 13.1 g/dL (12.0-16.0); Immature Granulocytes Abs Auto 0.02 10^3/uL (0.00-0.03); Immature Granulocytes Pct Auto 0.2 % (0.0-0.5); Lymphocytes Absolute Auto 2.8 10^3/uL (1.2-3.8); Lymphocytes Percent Auto 26.4 % (20.5-60.0); Mean Corpuscular HGB Conc 32.7 g/dL (29.9-35.2); Mean Corpuscular Hemoglobin 26.1 pg (26.7-34.0); Mean Platelet Volume 10.3 fL (9.5-13.5); Monocytes Absolute Auto 0.8 10^3/uL (0.3-0.8); Monocytes Percent Auto 7.7 % (1.7-12.0); Neutrophils Absolute Auto 6.7 10^3/uL (1.4-6.5); Neutrophils Percent Auto 64.1 % (43.0-75.0); Platelet Count 242 10^3/uL (150-450); Red Blood Count 5.01 10^6/uL (4.20-5.40); Red Cell Distribution Width 14.1 % (11.0-15.0); White Blood Count 10.5 10^3/uL (4.0-11.0)
[2025-01-31 19:36] LABS: Alanine Aminotransferase 24 U/L (14-59); Albumin Globulin Ratio 0.8; Alkaline Phosphatase 134 U/L (46-116); Anion Gap 11.3; Aspartate Amino Transferase 16 U/L (15-37); Bilirubin Total 0.3 mg/dL (0.2-1.0); Calcium 8.5 mg/dL (8.5-10.1); Carbon Dioxide 28.6 mmol/L (21.0-32.0); Chloride 106 mmol/L (98-107); Estimated GFR (African America >60 (>=60 mL/min/1.73m^2); Estimated GFR (Non-African Ame >60 (>=60 mL/min/1.73m^2); Globulin 3.7 g/dL; Glucose 80 mg/dL (74-106); Potassium 3.9 mmol/L (3.5-5.1); Sodium 142 mmol/L (136-145); Total Protein 6.7 g/dL (6.4-8.2); Troponin I High Sensitivity 5.6 pg/mL (4.0-51.3)
[2025-01-31] MEDS: DEXAMETHASONE SOD PHOS 10 MG/ML VIAL IV (21:16)
[2025-01-31] MEDS: KETOROLAC TROMETHAMINE 30 MG/ML VIAL IVP (21:16)
--- NOTE | 2025-01-31 21:34 | PC.NURSE ---
i gave this patient verbal and paper discharge orders along with 2 e-scripts, and this patient voices ye to understanding these. at time of discharge this patient voices no concerns and shows no signs of distress
== END 2025-01-31 21:35 | disposition home or self-care (01) ==
PROVIDERS: Nurse Practitioner Family; Emergency Provider Emergency Medicine; PCP Internal Medicine
DX: R07.89 Other chest pain (principal); Z98.84 Bariatric surgery status
CPT/HCPCS: 36415; 71101; 80053; 83690; 84484; 85025; 93005; 96374; 96375; 99285; J1100; J1885